=== PATIENT | female | born 1980 | race Caucasian/White ===

== ENCOUNTER 2018-04-23 00:57 | Emergency (ER) | payer SELFPAY ==
[2018-04-23] MEDS ORDERED: AUGMENTIN 875-1 EAC1 PO (03:11)
[2018-04-23 03:28] VITALS: BP 106/78
== END 2018-04-23 03:28 | disposition home or self-care (01) ==
LOC: ED 00:57
DX: S06.9X9A Unspecified intracranial injury with loss of consciousness of unspecified duration, initial encounter (principal); S30.0XXA Contusion of lower back and pelvis, initial encounter; S40.211A Abrasion of right shoulder, initial encounter; R40.2412 Glasgow coma scale score 13-15, at arrival to emergency department; Y04.0XXA Assault by unarmed brawl or fight, initial encounter; W10.9XXA Fall (on) (from) unspecified stairs and steps, initial encounter; Y92.009 Unspecified place in unspecified non-institutional (private) residence as the place of occurrence of the external cause; F17.210 Nicotine dependence, cigarettes, uncomplicated; J01.10 Acute frontal sinusitis, unspecified; J01.00 Acute maxillary sinusitis, unspecified